=== PATIENT | male | born 1950 | race Caucasian/White ===

== ENCOUNTER → 2018-07-09 | Outpatient (CLI) | payer MEDICARE ==
[~2018-07-09] MED LIST: ANDROGEL; ASPI-621 PO; MULT-758 PO; OLME40TA12 PO; ROSU40TA PO
[2018-07-09 15:59] LABS: ALANINE AMINOTRANSFERASE 40 U/L (12-78); ALBUMIN 3.8 g/dL (3.4-5.0); ANION GAP 5 mmol/L (5-15); CALCIUM 8.6 mg/dL (8.5-10.1); CHLORIDE 110 mmol/L (98-107); CREATININE 1.22 mg/dL (0.7-1.3)
[2018-07-09 16:01] LABS: ALKALINE PHOSPHATASE 71 U/L (45-117); BILIRUBIN,TOTAL 0.6 mg/dL (0.2-1.0); TOTAL PROTEIN 7.2 g/dL (6.4-8.2)
== END | disposition home or self-care (01) ==
LOC: STAR 14:51
PROVIDERS: ATTEND Otolaryngology
DX: Z01.818 Encounter for other preprocedural examination (principal); J32.0 Chronic maxillary sinusitis; J32.1 Chronic frontal sinusitis; J32.2 Chronic ethmoidal sinusitis
CPT/HCPCS: 36415; 80053; 93005

== ENCOUNTER 2018-07-14 08:39 | Day surgery (SDC) | payer MEDICARE ==
[~2018-07-14] VITALS: Ht 185.4 cm; Wt 104.6 kg
[~2018-07-14 08:39] MED LIST changes: +BACITRACIN OINT 500U/GM, 15 GM ONE; +EPINEPHRINE TOPICAL SOLN 1 MG/ML, 30ML ONE; +FLUORESCEIN SODIUM 500 MG/5 ML ONE; +LIDOCAINE 1%-EPI 1:100K, 30ML ONE; +OXYMETAZOLINE NASAL SPRAY 0.05%, 15ML ONE
[2018-07-14] MEDS ORDERED: LACTATED RINGERS 1,000 ML IV SCH (09:01)
[2018-07-14] MEDS ORDERED: FENTANYL PF 250 MCG/5ML ONE (09:07)
[2018-07-14] MEDS ORDERED: PROPOFOL 10 MG/ML, 20ML ONE (09:07)
[2018-07-14] MEDS ORDERED: MIDAZOLAM 1 MG/ML, 2ML ONE (09:07)
[2018-07-14] MEDS ORDERED: LIDOCAINE-MPF 2% ,5ML ONE (09:08)
[2018-07-14] MEDS ORDERED: WATER-INJECTION,STERILE 10 ML IV ONE (09:33)
[2018-07-14] MEDS ORDERED: CEFAZOLIN 1,000 MG ONE ×2 (09:33)
[2018-07-14] MEDS ORDERED: DEXMEDETOMIDINE 200 MCG/2 ML ONE (09:45)
[2018-07-14] MEDS ORDERED: ONDANSETRON 2MG/ML, 2ML ONE (09:48)
[2018-07-14] MEDS ORDERED: ROCURONIUM 10 MG/ML,10ML ONE (09:48)
[2018-07-14] MEDS ORDERED: PHENYLEPHRINE 10 MG/ML ONE (09:48)
[2018-07-14] MEDS ORDERED: DEXAMETHASONE 4 MG/ML, 1ML ONE ×2 (10:01)
[2018-07-14] MEDS ORDERED: OXYcodone 5 MG/5 ML ORAL.SOL UDC ONE ×2 (11:58→12:36)
[2018-07-14] MEDS ORDERED: ACETAMINOPHEN 650 MG/20.3 ML UDC ONE (11:58)
[2018-07-14] MEDS: OXYcodone 5 MG/5 ML ORAL.SOL UDC PO PRN ×2 (11:59→12:36)
[2018-07-14] MEDS ORDERED: ACETAMINOPHEN 325 MG TABLET PO PRN (12:00)
[2018-07-14] MEDS ORDERED: MEPERIDINE/PF 25MG/0.5ML IVPush PRN (12:00)
[2018-07-14] MEDS ORDERED: hydrALAzine 20 MG/ML, 1ML IV PRN (12:00)
[2018-07-14] MEDS ORDERED: HYDROmorphone 1 MG/ML, 1ML IV PRN (12:00)
[2018-07-14] MEDS ORDERED: PROMETHAZINE 25 MG/ML, 1ML IV PRN (12:00)
[2018-07-14] MEDS ORDERED: HALOPERIDOL 5 MG/ML IV PRN (12:00)
[2018-07-14] MEDS ORDERED: LABETALOL 5MG/ML, 20ML IV PRN (12:00)
[2018-07-14] MEDS ORDERED: FENTANYL PF 100 MCG/2ML IV PRN (12:00)
== END 2018-07-14 15:30 | disposition home or self-care (01) ==
LOC: OUT 08:39
PROVIDERS: ATTEND Otolaryngology
DX: J32.0 Chronic maxillary sinusitis (principal); J32.2 Chronic ethmoidal sinusitis; J32.3 Chronic sphenoidal sinusitis; J33.9 Nasal polyp, unspecified; F15.90 Other stimulant use, unspecified, uncomplicated; I10 Essential (primary) hypertension; E78.5 Hyperlipidemia, unspecified; Z72.89 Other problems related to lifestyle
CPT/HCPCS: 30140; 31257; 31267; 61782; 88304; J0690; J1100; J2250; J2370; J2405; J2704; J3010; J3490; J7120